=== PATIENT | female | born 1995 | race African-American/Black ===

== ENCOUNTER 2017-01-23 23:05 | Emergency (ER) | payer OTHER ==
[~2017-01-23] VITALS: Ht 157.5 cm; Wt 76.8 kg
[2017-01-23 23:14] VITALS: TEMP 37.1; Ht 157.5 cm; Wt 76.8 kg
[2017-01-24] LABS: BASO % 0.4 %; BASO ABS # 0.03 K/uL (0-0.2); EOS % 2.1 %; HEMATOCRIT 32.1 % (37-47); IG% 0.3 %; LYMPH % 24.4 %; LYMPH ABS # 1.88 K/uL (1.2-3.4); MEAN CELL VOLUME 62.9 fL (80-100); MEAN CORPUSCULAR HEMOGLOBIN 23.1 pg (25-34); MEAN CORPUSCULAR HGB CONC 36.8 g/dl (32-36); MEAN PLATELET VOLUME 9.5 fL (7.4-10.4); MONO % 4.5 %; NEUT % 68.3 %; PLATELET COUNT 189 K/uL (130-400); WHITE BLOOD COUNT 7.72 K/uL (4.8-10.8)
[2017-01-24 00:18] LABS: URINE APPEARANCE CLEAR (CLEAR); URINE BILIRUBIN NEG (NEG); URINE COLOR YELLOW; URINE NITRITE NEG (NEG); URINE SPECIFIC GRAVITY 1.019 (1.000-1.030); UROBILINOGEN NEG (NEG); ZZUR CULT IF INDIC CLEAN CATCH NO
[2017-01-24 00:19] LABS: MANUAL MICROSCOPIC REQUIRED? NO; REVIEW REQ? NO
[2017-01-24 00:20] LABS: BUN/CREATININE RATIO 11.7 (10-20); CREATININE 0.79 mg/dl (0.60-1.20); POTASSIUM 3.7 mmol/L (3.5-5.1)
[2017-01-24 00:42] LABS: ANISOCYTOSIS PRESENT; COMPLETE YES; MICROCYTOSIS PRESENT; POLYCHROMASIA 1+
--- NOTE | 2017-01-24 01:35 | EMERGENCY ROOM VISIT NOTE ---
History First contact with patient: 23:17 Chief Complaint: VAGINAL BLEEDING Stated Complaint: ON/OFF CRAMPING,VAG BLEEDING History of Present Illness The patient is a 21 year old female who presents to the Emergency Room with complaints of vaginal bleeding. The patient states that she is approximately 6 weeks . She reports that she had a positive negative test at [facility]. She is scheduled with [facility] next month, but has not seen them yet. She reports that she went to the bathroom and was wearing a panty liner due to vaginal discharge. She noticed that the line was soaked with blood. She also reports she has had some intermittent cramping in her lower abdomen for one week. The patient has had one previous and had an elective . She denies any discomfort at this time. She denies any history of bleeding disorders. Review of Systems A complete 10 point review of systems was reviewed with the patient with pertinent positives and negatives as per history of present illness. All else were negative. Social History Smoking Status: Current Some Day Smoker Current/Historical Medications No Active Prescriptions or Reported Meds Physical Exam Vital Signs Date Time Temp Pulse Resp B/P (MAP) Pulse Ox O2 Delivery O2 Flow Rate FiO2 01/24/17 01:42 87 18 126/62 100 01/24/17 00:43 97 16 125/64 99 Room Air 01/23/17 23:14 37.1 86 18 146/80 97 Room Air Physical Exam VITALS: Vitals are noted on the nurse's note and reviewed by myself. Vital signs stable. GENERAL: This is a 21-year-old female, in no acute distress, nondiaphoretic, well-developed well-nourished. HEART: Regular rate and rhythm without murmurs gallops or rubs. LUNGS: Clear to auscultation bilaterally without wheezes, rales or rhonchi. ABDOMEN: Positive bowel sounds x 4. Soft, nontender to palpation. NEURO: Patient was alert and oriented to person place and time. Medical Decision & Procedures ER Provider Diagnostic Interpretation: US OB LIMITED: IUP measuring 6 weeks 1 day with heart rate of 128 BPM. 1.8 cm right ovarian cyst, presumably a corpus luteum. Radiologist: Arnol Ayers MD Laboratory Results 01/23/17 23:45 Red Blood Count 5.10, Mean Corpuscular Volume 62.9, Mean Corpuscular Hemoglobin 23.1, Mean Corpuscular Hemoglobin Concent 36.8, Mean Platelet Volume 9.5, Neutrophils (%) (Auto) 68.3, Lymphocytes (%) (Auto) 24.4, Monocytes (%) (Auto) 4.5, Eosinophils (%) (Auto) 2.1, Basophils (%) (Auto) 0.4, Neutrophils # (Auto) 5.28, Lymphocytes # (Auto) 1.88, Monocytes # (Auto) 0.35, Eosinophils # (Auto) 0.16, Basophils # (Auto) 0.03 01/23/17 23:45 Test 01/23/17 23:45 01/23/17 23:55 White Blood Count 7.72 K/uL (4.8-10.8) Red Blood Count 5.10 M/uL (4.2-5.4) Hemoglobin 11.8 g/dL (12.0-16.0) Hematocrit 32.1 % (37-47) Mean Corpuscular Volume 62.9 fL (80-100) Mean Corpuscular Hemoglobin 23.1 pg (25-34) Mean Corpuscular Hemoglobin Concent 36.8 g/dl (32-36) Platelet Count 189 K/uL (130-400) Mean Platelet Volume 9.5 fL (7.4-10.4) Neutrophils (%) (Auto) 68.3 % Lymphocytes (%) (Auto) 24.4 % Monocytes (%) (Auto) 4.5 % Eosinophils (%) (Auto) 2.1 % Basophils (%) (Auto) 0.4 % Neutrophils # (Auto) 5.28 K/uL (1.4-6.5) Lymphocytes # (Auto) 1.88 K/uL (1.2-3.4) Monocytes # (Auto) 0.35 K/uL (0.11-0.59) Eosinophils # (Auto) 0.16 K/uL (0-0.5) Basophils # (Auto) 0.03 K/uL (0-0.2) RDW Standard Deviation 37.8 fL (36.4-46.3) RDW Coefficient of Variation 16.5 % (11.5-14.5) Immature Granulocyte % (Auto) 0.3 % Immature Granulocyte # (Auto) 0.02 K/uL (0.00-0.02) Polychromasia 1+ Anisocytosis PRESENT Microcytosis PRESENT Anion Gap 4.0 mmol/L (3-11) Est Creatinine Clear Calc Drug Dose 109.9 ml/min Estimated GFR () 125.8 Estimated GFR (Non- 108.5 BUN/Creatinine Ratio 11.7 (10-20) Calcium Level 9.0 mg/dl (8.5-10.1) Human Chorionic Gonadotropin, Quant 11282 mIU/mL Urine Color YELLOW Urine Appearance CLEAR (CLEAR) Urine pH 6.0 (4.5-7.5) Urine Specific [place] 1.019 (1.000-1.030) Urine Protein NEG (NEG) Urine Glucose (UA) NEG (NEG) Urine Ketones NEG (NEG) Urine Occult Blood TRACE (NEG) Urine Nitrite NEG (NEG) Urine Bilirubin NEG (NEG) Urine Urobilinogen NEG (NEG) Urine Leukocyte Esterase SMALL (NEG) Urine WBC (Auto) 5-10 /hpf (0-5) Urine RBC (Auto) 0-4 /hpf (0-4) Urine Hyaline Casts (Auto) 0 /lpf (0-5) Urine Epithelial Cells (Auto) 10-20 /lpf (0-5) Urine Bacteria (Auto) NEG (NEG) Medical Decision Differential diagnosis includes spontaneous , ectopic , first trimester bleeding, among others. The patient is a 21-year-old female who presents today complaining of vaginal bleeding during . The bleeding has resolved at this time. Labs revealed no leukocytosis or anemia. Beta hCG was found to be within normal limits for patient's reported gestational age. Ultrasound showed a viable IUP with heart rate of 128 bpm. Blood type was B+ and patient will not require RhoGAM. Patient will require 48 hour follow-up and was referred to [facility] for this. She was advised that if she is not able to follow-up with them, she should contact [facility] or return here. Based on the patient's presentation and work up, I feel the patient is stable for outpatient treatment. The patient was educated to return to the emergency department for any worsening of their current condition or new/concerning symptoms. She will follow up with [facility]. Medication Reconcilliation Current Medication List: was personally reviewed by me Blood Pressure Screening Patient's blood pressure: Normal blood pressure Impression Primary Impression: Vaginal bleeding in Departure Information Dispostion Home / Self-Care Condition GOOD Prescriptions No Active Prescriptions or Reported Meds Referrals No Doctor, Assigned (PCP) Albertina Clement D.Luis. Patient Instructions My [facility] Additional Instructions For pain control, you can use the following [id number] medicines (if >12 yo): - Regular strength (325mg/tab) Tylenol (acetaminophen) 2 tabs every 4-6 hours as needed. Do not exceed 12 tablets in a 24 hour period. Avoid taking more than 4 grams (4000 mg) of Tylenol per day. This includes any other sources of acetaminophen you may take on a regular basis. You should begin taking a vitamin. You should call [facility] (Dr. Clement) to schedule follow-up on Thursday. You may need a repeat blood test or ultrasound. If you are not able to get in with [facility], you should follow-up with [facility]. Return here for worsening bleeding, worsening pain, or any other new/concerning symptoms.
[2017-01-24 01:42] VITALS: BP 126/62; PULSE 87; O2SAT 100
--- NOTE | 2017-01-24 07:02 | DIAGNOSTIC IMAGING REPORT ---
LIMITED (US) CLINICAL HISTORY: vaginal bleeding, cramping, approximately 6 wks COMPARISON STUDY: None. FINDINGS: Transabdominal and transvaginal scanning of the pelvis was performed. There is a single intrauterine gestational sac, yolk sac, and pole. [place]-rump length is 4.4 mm consistent with a 6 week and 1 day intrauterine gestation. heart rate is 128 bpm. No significant subchorionic hematoma. A 1.8 cm right ovarian cyst which favors a corpus luteum. Normal left ovary. Trace pelvic free fluid. IMPRESSION: A single viable 6 week and 1 day intrauterine gestation demonstrating a heart rate of 128 bpm. Electronically signed by: Efrain Grijalva M.D. 01/24/2017 7:01 AM Dictated Date/Time: 01/24/2017 6:59 AM
== END 2017-01-24 01:44 | disposition home or self-care (01) ==
LOC: C.EDB 23:06 → C.EDC 01-24 01:44
DX: O20.8 Other hemorrhage in early pregnancy (principal); F17.200 Nicotine dependence, unspecified, uncomplicated

== ENCOUNTER → 2017-02-06 | Outpatient (CLI) | payer OTHER ==
[2017-02-06 14:31] LABS: URINE APPEARANCE CLEAR (CLEAR); URINE BILIRUBIN NEG (NEG); URINE COLOR YELLOW; URINE NITRITE NEG (NEG); URINE PH 6.5 (4.5-7.5); URINE SPECIFIC GRAVITY 1.016 (1.000-1.030); UROBILINOGEN NEG (NEG)
[2017-02-06 14:34] LABS: MANUAL MICROSCOPIC REQUIRED? NO; REVIEW REQ? NO
== END | disposition home or self-care (01) ==
LOC: C.LABSPEC 13:57
PROVIDERS: ATTEND Obstetrics & Gynecology
DX: Z34.01 Encounter for supervision of normal first pregnancy, first trimester (principal)

== ENCOUNTER → 2017-02-11 | Outpatient (CLI) | payer OTHER ==
[2017-02-11 14:41] LABS: BASO % 0.5 %; BASO ABS # 0.03 K/uL (0-0.2); EOS % 2.5 %; HEMATOCRIT 30.5 % (37-47); IG% 0.3 %; LYMPH % 22.6 %; LYMPH ABS # 1.37 K/uL (1.2-3.4); MEAN CELL VOLUME 63.1 fL (80-100); MEAN CORPUSCULAR HEMOGLOBIN 22.4 pg (25-34); MEAN CORPUSCULAR HGB CONC 35.4 g/dl (32-36); MEAN PLATELET VOLUME 10.1 fL (7.4-10.4); MONO % 6.3 %; NEUT % 67.8 %; PLATELET COUNT 188 K/uL (130-400); RED BLOOD COUNT 4.83 M/uL (4.2-5.4); WHITE BLOOD COUNT 6.07 K/uL (4.8-10.8)
[2017-02-11 15:04] LABS: COMPLETE YES; MICROCYTOSIS PRESENT; POLYCHROMASIA 1+
== END | disposition home or self-care (01) ==
LOC: C.LAB1850 13:53
PROVIDERS: ATTEND Obstetrics & Gynecology
DX: Z34.01 Encounter for supervision of normal first pregnancy, first trimester (principal)

== ENCOUNTER → 2017-04-01 | Outpatient (CLI) | payer OTHER ==
[2017-04-01 18:33] LABS: GTGD 50 Grams
== END | disposition home or self-care (01) ==
LOC: C.LAB1850 15:35
PROVIDERS: ATTEND Obstetrics & Gynecology
DX: O98.219 Gonorrhea complicating pregnancy, unspecified trimester (principal); Z34.02 Encounter for supervision of normal first pregnancy, second trimester